=== PATIENT | female | born 1980 | race Two or more races ===

== ENCOUNTER 2018-12-12 21:01 | Emergency (ER) | payer MEDICAID, OTHER ==
[~2018-12-12] VITALS: Ht 167.6 cm; Wt 129.8 kg
[2018-12-13 00:50] VITALS: BP 129/69
== END 2018-12-13 01:00 | disposition home or self-care (01) ==
LOC: ER 21:01
DX: L03.115 Cellulitis of right lower limb (principal); Z90.49 Acquired absence of other specified parts of digestive tract
CPT/HCPCS: 99283

== ENCOUNTER 2019-01-09 01:45 | Emergency (ER) | payer OTHER ==
[~2019-01-09] VITALS: Ht 167.6 cm; Wt 127.0 kg
[2019-01-09 03:45] VITALS: BP 113/71
== END 2019-01-09 03:46 | disposition home or self-care (01) ==
LOC: ER 01:45
DX: L25.9 Unspecified contact dermatitis, unspecified cause (principal); Z90.49 Acquired absence of other specified parts of digestive tract
CPT/HCPCS: 99283

== ENCOUNTER 2021-12-06 02:03 | Emergency (ER) | payer OTHER ==
[~2021-12-06] VITALS: Ht 170.2 cm; Wt 140.5 kg
[2021-12-06 04:16] LABS: BASOPHILS % 0.6 % (0.0-2.0); EOSINOPHILS % 1.7 % (0.0-5.0); HEMATOCRIT. 37.8 % (36.0-48.0); HEMOGLOBIN. 12.4 g/dL (12.0-16.0); LYMPHOCYTES % 36.8 % (20.0-50.0); MEAN CORPUSCULAR HEMOGLOBIN 27.9 pg (28.0-32.0); MEAN CORPUSCULAR VOLUME 85.1 fL (81.0-99.0); MEAN PLATELET VOLUME 8.3 fl (7.4-10.4); MONOCYTES % 7.8 % (2.0-8.0); NEUTROPHILS % 53.1 % (40.0-76.0); PLATELET 252 x1000/uL (130-400); RED BLOOD CELL COUNT 4.44 mill/uL (4.2-5.4); RED CELL DISTRIBUTION WIDTH 13.9 % (11.6-14.6)
[2021-12-06 04:21] LABS: CHLORIDE 108 mEq/L (98-107)
[2021-12-06] MEDS ORDERED: IBUP-2028 MT (05:46)
[2021-12-06 05:59] VITALS: BP 105/59
== END 2021-12-06 06:01 | disposition home or self-care (01) ==
LOC: ER 02:24
DX: R07.89 Other chest pain (principal)
CPT/HCPCS: 36415; 71045; 80053; 84484; 85025; 85379; 93005; 99285

== ENCOUNTER 2022-12-05 20:05 | Emergency (ER) | payer OTHER ==
[~2022-12-05] VITALS: Ht 167.6 cm; Wt 137.0 kg
[~2022-12-05 20:05] MED LIST: IBUP-2028 MT
[2022-12-05 20:53] VITALS: BP 136/78; O2SAT 96
[2022-12-06 00:07] VITALS: PULSE 89; RESP 18; TEMP 98.2
== END 2022-12-06 00:07 | disposition home or self-care (01) ==
LOC: ER 20:05
DX: R20.2 Paresthesia of skin (principal); Z98.890 Other specified postprocedural states
CPT/HCPCS: 81025; 99284